=== PATIENT | female | born 1930 | race African-American/Black ===

== ENCOUNTER → 2020-06-23 | Outpatient (CLI) | payer MEDICARE ==
[2020-05-27 11:00] VITALS: BP 115/50
[~2020-06-23] MED LIST: AMIO200T6 PO; APIX2.5T PO; ASPI-630 PEG; BARIUM SULFATE 40% (APPLE) 148 GM PWD. PO ONE; CETI10TA74 PO; CLON0.1T PO; DICL100G54 TP; METO25TA4 PO; OMEP40CA45 PO
--- NOTE | 2020-06-23 15:05 | RAD ---
PROCEDURE: VIDEO SWALLOW STUDY STUDY DATE: 06/23/2020 CLINICAL INDICATION / HISTORY: Reason: DYSPHAGIA, 5.3 MIN FLUORO / Spl. Instructions: / History: . TECHNIQUE: Real-time fluoroscopic imaging examination was performed in conjunction with speech therapy. The patient was administered barium labeled thin liquids, nectar, honey, pudding, and solid consistency compounds. FLUOROSCOPY TIME: 5.3 minutes. Number of Images: 14 COMPARISON: None FINDINGS: Patient had moderate delay in swallow initiation with increased transit time or reduced bolus propulsion. Those reduced oral coordination with some wall residue. Pharyngeal phase showed mild delay in swallow initiation with pooling in the valleculae with thin liquids and residue in the valleculae post swallow from oral residue. No flash penetration was observed with thin liquids, nectar, and honey consistency compounds. No definite aspiration was observed. The patient tolerated solid barium label compounds. IMPRESSION: Dysphagia of the oral and pharyngeal phases. No evidence of aspiration. Please refer to speech pathology notes for complete details and recommendations. Electronically signed by: Hellen Lock MD (06/23/2020 3:02 PM) [id number]
== END ==
LOC: RAD 09:29
PROVIDERS: ATTEND Internal Medicine
DX: R13.10 Dysphagia, unspecified (principal)
CPT/HCPCS: 74230; 92611-GN

== ENCOUNTER → 2020-07-05 | Outpatient (CLI) | payer MEDICARE ==
[2020-05-27 11:00] VITALS: BP 115/50
[~2020-07-05] MED LIST changes: -BARIUM SULFATE 40% (APPLE) 148 GM PWD. PO ONE
--- NOTE | 2020-07-05 12:28 | RAD ---
INDICATION: Reason: Right Leg pain / Spl. Instructions: / History: COMPARISON: None. TECHNIQUE: Grayscale, color and doppler ultrasound images were obtained of the right lower extremity venous vasculature. RIGHT: No thrombus identified in the common femoral vein, femoral vein, popliteal vein or visualized calf veins. 36 x 28 x 13 mm cystic structure in the popliteal fossa. IMPRESSION: * No thrombus identified in deep venous system of right lower extremity. * Hypoechoic structure in the popliteal fossa which could be from causes such as complex Hassan's cyst. Other possible causes would include soft tissue hematoma in the mid be helpful to obtain a follow-up to ensure that this appropriately resolves to exclude any solid mass in the region. Electronically signed by: Faisal Arrieta MD (07/05/2020 12:26 PM) [id number]
== END ==
LOC: US 11:04
PROVIDERS: ATTEND Internal Medicine
DX: M79.604 Pain in right leg (principal)
CPT/HCPCS: 93971

== ENCOUNTER → 2020-10-14 | Outpatient (CLI) | payer MEDICARE ==
[2020-05-27 11:00] VITALS: BP 115/50
[~2020-10-14] MED LIST changes: +GABA600T7 PO; +MELA5TAB PO; +ROPI0.254 PO
== END ==
LOC: LAB 11:20
PROVIDERS: ATTEND Internal Medicine Gastroenterology
DX: Z01.812 Encounter for preprocedural laboratory examination (principal); Z43.1 Encounter for attention to gastrostomy; Z20.822 Contact with and (suspected) exposure to COVID-19
CPT/HCPCS: U0003

== ENCOUNTER → 2020-10-17 | Day surgery (SDC) | payer MEDICARE ==
[~2020-10-17] MED LIST changes: +IV RINGERS,LACTATED 1000ML 1,000 ML IV SCH; +PROPOFOL 10 MG/ML (20ML) VIAL. IV ONE
--- NOTE | 2020-10-17 14:14 | PDOC1 ---
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 PEG placed but no longer using and wishes removal. Past Medical History Cardiovascular: HTN CENTRAL NERVOUS SYSTEM: CVA Past Surgical History Past Surgical History: Appendectomy Family History Family History: Stroke Social History Smoke: No ALCOHOL: none Drugs: None Current Medications Current Medications Current Medications Ringer's Solution 1,000 ml @ 50 mls/hr Q20H IV Last administered on 10/17/20at 13:40; Start 10/17/20 at 07:00; Stop 10/17/20 at 18:59 Propofol (Diprivan) 200 mg STK-MED ONCE IV ; Start 10/17/20 at 14:02; Stop 10/17/20 at 14:02; Status DC Active Scripts Active Metoprolol Tartrate 25 Mg Tablet 25 Mg PO BID Eliquis (Apixaban) 2.5 Mg Tablet 2.5 Mg PO BID Aspirin 81 Mg Tab.chew 81 Mg PEG [id number] Amiodarone Hcl 200 Mg Tablet 200 Mg PO DAILY Reported Melatonin 5 Mg Tablet 5 Mg PO HS Ropinirole Hcl 0.25 Mg Tablet 0.25 Mg PO HS Gabapentin 600 Mg Tablet 200 Mg PO TID Allergies Allergies: Coded Allergies: Penicillins (Verified Allergy, Intermediate, hives, rash, 05/25/20) ROS Review of System Otherwise non-contributory. Physical Exam General: Alert, Oriented X3, Cooperative, No acute distress Lungs: Clear to auscultation Heart: S1S2, RRR, no gallops, no murmurs Abdomen: Normal bowel sounds, Soft, No tenderness, No hepatosplenomegaly, Other (PEG tube present.) Rectal Exam: not examined Extremities: No cyanosis, No edema Skin: No significant lesion Neuro: Other (left sided weakness.) Vitals Vitals Vital Signs Date Time Temp Pulse Resp B/P (MAP) Pulse Ox O2 Delivery O2 Flow Rate FiO2 10/17/20 13:30 97.8 73 20 94 97.8 VTE Prophylaxis Ordered VTE Prophylaxis Devices: No VTE Pharmacological Prophylaxi: No Assessment/Plan Assessment/Plan IMP: Prior PEG; wishes unused tube removed. PLAN: EGD/de-PEG. JENNA MALDONADO MD Oct 17, 2020 14:14
--- NOTE | 2020-10-17 14:28 | PDOC4 ---
PROCEDURE Procedure EGD/de-PEG Indication; unused g-tube. Meds: per anesthesia Findings: E--Normal G--PEG in place. "Hooded" antrum. D--Normal bulb. --g-tube snared internally, cut externally, removed orally. Keila. well. IMP: Successful g-tube removal. REC: 4x4 over stoma prn; any drainage should cease w/in 24 hours. Resume diet and meds. December f/u with sd prn. JENNA MALDONADO MD Oct 17, 2020 14:28
[2020-10-17 14:44] VITALS: BP 180/69
== END | disposition home or self-care (01) ==
LOC: ENDOS 12:55
PROVIDERS: ATTEND Internal Medicine Gastroenterology
DX: Z43.1 Encounter for attention to gastrostomy (principal); E11.59 Type 2 diabetes mellitus with other circulatory complications; I10 Essential (primary) hypertension; M19.90 Unspecified osteoarthritis, unspecified site; Z86.73 Personal history of transient ischemic attack (TIA), and cerebral infarction without residual deficits; Z79.899 Other long term (current) drug therapy; Z98.890 Other specified postprocedural states; Z88.0 Allergy status to penicillin; Z79.82 Long term (current) use of aspirin
CPT/HCPCS: 43247; J2704